=== PATIENT | female | born 1960 | race African-American/Black ===

== ENCOUNTER 2020-04-12 05:02 | Day surgery (SDC) | payer OTHER ==
[2020-04-11 13:24] VITALS: BMI 31.4
[2020-04-12] MEDS ORDERED: MIDAZOLAM HCL 2 MG/2 ML SINGLE DOSE VIAL ONE (10:04)
[2020-04-12] MEDS ORDERED: PROPOFOL 20 ML ONE ×2 (10:04→11:04)
[2020-04-12] MEDS ORDERED: ceFAZolin SODIUM 1 GM VIAL ONE (10:05)
[2020-04-12] MEDS ORDERED: SODIUM CHLORIDE 0.9% P/F 10 ML VIAL IJ ONE (10:05)
[2020-04-12] MEDS ORDERED: LIDOCAINE 1%-EPI 1:100,000 30 ML MDV IJ ONE (10:13)
[2020-04-12] MEDS ORDERED: BUPIVACAINE HCL 100 ML ONE (10:13)
[2020-04-12] MEDS ORDERED: ceFAZolin 2 GRAM PREMIX BAG IVPB ONE (10:40)
[2020-04-12] MEDS ORDERED: BUPIVACAINE HCL/PF 0.5% (5MG/ML) 10 ML VIAL NR ONE (10:49)
[2020-04-12] MEDS ORDERED: LIDOCAINE 1%/EPI 1:100000 (20 ML MULTI DOSE VIAL) IJ ONE (10:49)
[2020-04-12] MEDS ORDERED: ONDANSETRON 4 MG/2 ML VIAL IVPUSH PRN (11:27)
[2020-04-12] MEDS ORDERED: oxyCODONE HCL 5 MG TABLET PO PRN (11:27)
[2020-04-12] MEDS ORDERED: LACTATED RINGERS SOLUTION 1,000 ML IV SCH (11:30)
[2020-04-12] MEDS ORDERED: ACETAMINOPHEN 1000 MG/100 ML VIAL (NON FORMULARY) IVPB ONE (12:05)
[2020-04-12] MEDS ORDERED: ACETAMINOPHEN INJECTION 100 ML IVPB ONE (12:08)
[2020-04-12 13:52] VITALS: TEMP 97.5
[2020-04-12 16:31] VITALS: BP 132/74; PULSE 66
--- NOTE | 2020-04-12 18:51 | OP ---
DATE OF OPERATION: 04/12/2020 PREOPERATIVE DIAGNOSIS: Left bunion with hallux valgus, left varus fifth toe with exostosis on the distal phalanx. POSTOPERATIVE DIAGNOSIS: Left bunion with hallux valgus, left varus fifth toe with exostosis on the distal phalanx. PROCEDURE: Left Corona bunionectomy and left fifth toe arthroplasty with derotational skin plasty and excision of distal phalangeal bone spur. DESCRIPTION OF PROCEDURE: Under fractional anesthesia and a surgical scrub with Betadine scrub and solution x2, the patient was draped using sterile technique. After 3 minutes of left limb elevation, a left ankle tourniquet was inflated to 250 mmHg pressure for 60 minutes. Inspection of left foot showed a large bunion with large hallux valgus and a laterally swept digits 1 through 5. The 5th toe was not only laterally swept, but in a significant varus rotation and hammered. Using a number 15 surgical blade, a linear longitudinal incision was made in the dorsal medial aspect of the left foot over the 1st metatarsophalangeal joint. The incision was deepened through fascia and retracted. Joint capsule was found to be significantly atrophic and the head of the 1st metatarsal had a large medial eminence that had lacerated the medial joint capsule. The medial joint capsule was longitudinally incised and reflected, exposing the 1st metatarsophalangeal joint. At this time, the long extensor tendon was longitudinally excised and sectioned for Z-plasty lengthening later on. Using a bone saw, the base of the proximal phalanx and the medial eminence at the 1st metatarsophalangeal joint were resected. Following this, bone edges were smooth, the wound was irrigated with sterile saline, and then joint capsule was interposed in the joint space because it was fissured and atrophic, coverage was incomplete, but I covered the joint surface as best as possible. The joint capsule was sutured in place to the plantar joint capsule and to medial and lateral sides using 2-0 Vicryl suture. The long extensor tendon was then reapproximated in a lengthened position and sutured with the same 2-0 Vicryl suture. Superficial fascia was then reapproximated and closed with 4-0 Vicryl suture, and then skin reapproximated and closed with 4-0 nylon running interlocking suture. The left 1st metatarsophalangeal joint now properly reduced. Attention was then directed to the left 5th toe that was in significant varus position. Using a number 15-blade, an oblique double semielliptical incision was made in the skin over the proximal phalangeal joint from distal medial to proximal lateral. The incision was deepened through fascia, and the skin wedge was resected. The joint capsule was transversely incised and reflected, and then the head of the proximal phalanx was delivered into the wound and resected using a bone cutting forceps. The toe was now reduced into a more normal left varus anatomic position, so capsule was closed using 4-0 Vicryl and skin was reapproximated and closed with 4-0 nylon simple interrupted sutures. Lastly, attention was directed to the distal lateral aspect over the lateral condyle of the distal phalanx. A number 15-blade was used to make a sharp incision, and exposed the lateral condyle of the distal phalanx. Using a bone rasp, it was rasped smooth to take off the sharp surface. The wound was irrigated with saline and of course sutured with 4-0 nylon simple interrupted sutures. The ankle tourniquet was deflated after 60 minutes of inflation. Vascular perfusion immediately returned to all 5 digits, a dry sterile dressing was applied to the left foot. The patient tolerated the surgical procedure well and left the operating room stable, alert, awake, and in no pain. JH MILLER/[id number]
--- NOTE | 2020-04-16 16:30 | PATH ---
Surgical Pathology Report Patient Name: DIANNE VERMA [facility]. Rec. #: [id number] /Age/Gender: 1960 (Age: 59) / F Account: [id number] Location: [facility] SURGICAL Taken: 04/12/2020 Received: 04/12/2020 Reported: 04/16/2020 Physicians: Josemanuel Gaona M.D. Specimen(s) Received A: BONE FROM HALLUX, LEFT FIRST TOE B: BUNION LEFT C: BONE FROM FIFTH TOE, LEFT D: BONE FROM FIFTH TOE, LEFT Clinical History Bunion, hammertoe, osteophyte left foot Final Diagnosis A. BONE, HALLUX, FIRST TOE, LEFT, MPJ ARTHRODESIS: BENIGN BONE WITH FATTY MARROW. B. BUNION, LEFT, EXCISION: BENIGN BONE WITH FATTY MARROW. C. BONE, FIFTH TOE, LEFT, EXCISION: NO TISSUE DIAGNOSIS (NON-DIAGNOSTIC). D. BONE, FIFTH TOE, LEFT OSTECTOMY: BENIGN BONE WITH FATTY MARROW. Electronically Signed Angela Bernstein M.D. Gross Description A. Received in formalin labeled "left bone from hallux first toe," is a 2.0 x 1.5 x 0.7 cm rey, irregular portion of bone. Aerosol Line Operator sections are submitted in one cassette, following decalcification. B. Received in formalin labeled "bunion," is a 2.3 x 1.5 x 0.4 cm rey-yellow portion of bone. Aerosol Line Operator sections are submitted in one cassette, following decalcification. C. Received is a formalin filled container labeled "bone from fifth toe." There is no specimen identified within the container. D. Received in formalin labeled "bone from fifth toe left," is a 1.3 x 0.7 x 0.4 cm rey-yellow portion of bone. The specimen is bisected and entirely submitted in one cassette, following decalcification. 04/15/2020 [facility]04/15/2020
== END 2020-04-12 15:20 | disposition home or self-care (01) ==
LOC: JASU-SURG 05:02
PROVIDERS: ATTEND Podiatrist Foot Surgery
PROC: 0SRQ0JZ Replacement of Left Toe Phalangeal Joint with Synthetic Substitute, Open Approach (ICD-10-PCS; 2020-04-12)
PROC: 0SGN04Z Fusion of Left Metatarsal-Phalangeal Joint with Internal Fixation Device, Open Approach (ICD-10-PCS; principal; 2020-04-12 10:00)
DX: M21.612 Bunion of left foot (principal); M20.42 Other hammer toe(s) (acquired), left foot; M25.775 Osteophyte, left foot
CPT/HCPCS: 28150; 28285; 28750; C1713; 73630-TC-LT; 88300-TC; 88304-TC; 88311-TC; 94760; J0131